=== PATIENT | female | born 1950 | race Caucasian/White ===

== ENCOUNTER 2016-08-31 00:20 | Inpatient (IN) | payer MEDICARE ==
[~2016-08-31 00:20] MED LIST: CALCIUM-MAGNES1 EACH PO; CIPRO XR500 MG PO; CLONIDINE HCL0.1 MG PO; COUMADIN4 M1 PO; DIGOXIN125 MCG PO; FISH OIL 1,0001 CA1 PO; FLAGYL500 MG PO; FUROSEMIDE40 MG PO; HYDRALAZINE HCL25 M1 PO; KLOR-CON M1010 MEQ PO; LISINOPRIL-HCT1 EAC1 PO; LOPRESSOR100 M1 PO; NORVASC10 MG PO; VIT D; VIT E; WARFARIN
[2016-08-31] MEDS ORDERED: COUMADIN5 M2 PO (00:50)
[2016-08-31 01:35] LABS: BASO % 0.1 % (0-2); EOS % 0.5 % (0-7); HCT-HEMATOCRIT 32.2 % (34.0-49.0); HGB-HEMOGLOBIN 11.6 gm/dl (12.0-15.5); IMMATURE GRANULOCYTES ABSOLUTE 0.03 tho/cmm (0-0.03); IMMATURE GRANULOCYTES PERCENT 0.4 % (0-0.3); LYMPH % 14.7 % (20-45); LYMPH ABSOLUTE COUNT 1.2 tho/cmm (0.8-4.5); MCH (MEAN CORPUSCULAR HGB) 29.7 pg (28.0-32.0); MCV (MEAN CELL VOLUME) 82.4 fl (82.0-96.0); MEAN PLATELET VOLUME 8.3 cmc (9.4-12.4); MONO % 8.6 % (0-12); MONOCYTE ABSOLUTE COUNT 0.7 tho/cmm (0.0-1.2); NEUTROPHIL ABSOLUTE COUNT 6.3 tho/cmm (1.6-8.0); NEUTROPHIL-AUTOMATED 6.3 tho/cmm (1.6-8.0); NEUTROPHILS % 75.7 % (40-80); PLATELET COUNT 281 tho/cmm (150-450); RED BLOOD COUNT 3.91 mil/cmm (4.00-5.20); RED CELL DISTRIBUTION WIDTH 12.5 % (12.4-16.4); WHITE BLOOD COUNT 8.3 tho/cmm (4.0-10.0)
[2016-08-31 01:53] LABS: URINE BILIRUBIN NEGATIVE (NEG); URINE BLOOD MODERATE (NEG); URINE GLUCOSE (UA) NEGATIVE (NEG); URINE KETONE SMALL (NEG); URINE LEUKOCYTE ESTERASE NEGATIVE (NEG); URINE NITRITE POSITIVE (NEG); URINE PROTEIN MODERATE (NEG); URINE SPECIFIC GRAVITY 1.005 (1.003-1.030)
[2016-08-31 01:53] LABS: ALB/GLOB RATIO 1.1 (0.8-2.0); ALBUMIN 4.1 g/dl (3.5-5.0); ALKALINE PHOSPHATASE 126 U/L (33-138); ALT/SGPT 36 U/L (12-78); ANION GAP 18 mmol/L (0-20); AST/SGOT 34 U/L (10-40); BILIRUBIN,TOTAL 0.8 mg/dl (0-1.5); BLOOD UREA NITROGEN 31 mg/dl (6-24); CALCIUM 9.1 mg/dl (8.5-10.5); CARBON DIOXIDE-VENOUS 22 mmol/L (22-32); CHLORIDE 78 mmol/l (96-110); CREATININE 1.13 mg/dl (0.50-1.10); GLUCOSE 139 mg/dL (70-110); LIPASE 327 U/L (73-393); POTASSIUM 3.5 mmol/L (3.7-5.1); eGFR VALUE FOR BLACK 58 mL/Min
[2016-08-31 02:03] LABS: URINE APPEARANCE HAZY; URINE COLOR PALE YELLOW
[2016-08-31 02:04] LABS: URINE BACTERIA 3+; URINE EPITHELIAL CELLS 0 /[HPF] (0-10)
[2016-08-31 02:09] LABS: SODIUM 114 mmol/L (135-145)
[2016-08-31 04:51] LABS: INR 1.7 INR (0.9-1.1); PROTHROMBIN TIME 19.6 SECONDS (9.0-13.6)
[2016-08-31 05:21] LABS: URINE PRT/CR RATIO 3.43 Ratio (0.0-0.20); URINE TOTAL PROTEIN-RANDOM 27.5 mg/dl (<11.8)
[2016-08-31 05:49] LABS: INR 1.7 INR (0.9-1.1); PROTHROMBIN TIME 20.6 SECONDS (9.0-13.6)
[2016-08-31 05:54] LABS: ANION GAP 19 mmol/L (0-20); BLOOD UREA NITROGEN 26 mg/dl (6-24); CARBON DIOXIDE-VENOUS 23 mmol/L (22-32); CHLORIDE 78 mmol/l (96-110); CREATININE 1.07 mg/dl (0.50-1.10); GLUCOSE 128 mg/dL (70-110); POTASSIUM 3.5 mmol/L (3.7-5.1); eGFR VALUE FOR BLACK 62 mL/Min
[2016-08-31 06:05] LABS: SODIUM 116 mmol/L (135-145)
[2016-09-01 02:39] LABS: URINE PRT/CR RATIO 0.47 Ratio (0.0-0.20); URINE TOTAL PROTEIN-RANDOM 11.4 mg/dl (<11.8)
[2016-09-01 04:58] LABS: INR 1.9 INR (0.9-1.1)
[2016-09-01 05:04] LABS: ANION GAP 15 mmol/L (0-20); BLOOD UREA NITROGEN 29 mg/dl (6-24); CALCIUM 8.5 mg/dl (8.5-10.5); CARBON DIOXIDE-VENOUS 23 mmol/L (22-32); CHLORIDE 90 mmol/l (96-110); CREATININE 1.28 mg/dl (0.50-1.10); GLUCOSE 119 mg/dL (70-110); MAGNESIUM 1.8 mg/dl (1.8-2.6); PHOSPHOROUS 2.6 mg/dl (2.5-4.9); POTASSIUM 3.8 mmol/L (3.7-5.1); SODIUM 124 mmol/L (135-145); eGFR VALUE FOR BLACK 50 mL/Min
[2016-09-02 05:34] LABS: PROTHROMBIN TIME 23.5 SECONDS (9.0-13.6)
[2016-09-02 05:39] LABS: ANION GAP 14 mmol/L (0-20); BLOOD UREA NITROGEN 31 mg/dl (6-24); CALCIUM 8.7 mg/dl (8.5-10.5); CARBON DIOXIDE-VENOUS 23 mmol/L (22-32); CHLORIDE 101 mmol/l (96-110); CREATININE 1.21 mg/dl (0.50-1.10); GLUCOSE 103 mg/dL (70-110); SODIUM 133 mmol/L (135-145); eGFR VALUE FOR BLACK 54 mL/Min
[2016-09-02 05:44] LABS: POTASSIUM 4.7 mmol/L (3.7-5.1)
[2016-09-02] MEDS ORDERED: ZESTRIL20 M3 PO (10:25)
== END 2016-09-02 11:30 | DRG 641 ==
LOC: EDMED 00:20 → EMR2 03:45 → 5WF 03:46
PROVIDERS: Emergency Medicine; Family Medicine; Internal Medicine Nephrology; Registered Nurse; ADMIT Internal Medicine
DX: E87.1 Hypo-osmolality and hyponatremia (principal); E86.0 Dehydration; E11.22 Type 2 diabetes mellitus with diabetic chronic kidney disease; I48.91 Unspecified atrial fibrillation; N18.3 Chronic kidney disease, stage 3 (moderate); I13.0 Hypertensive heart and chronic kidney disease with heart failure and stage 1 through stage 4 chronic kidney disease, or unspecified chronic kidney disease; I50.32 Chronic diastolic (congestive) heart failure; E86.1 Hypovolemia; E87.6 Hypokalemia; T39.395A Adverse effect of other nonsteroidal anti-inflammatory drugs [NSAID], initial encounter; T50.2X5A Adverse effect of carbonic-anhydrase inhibitors, benzothiadiazides and other diuretics, initial encounter; Z79.01 Long term (current) use of anticoagulants; R00.1 Bradycardia, unspecified; W19.XXXA Unspecified fall, initial encounter; M16.0 Bilateral primary osteoarthritis of hip; R82.71 Bacteriuria; R80.9 Proteinuria, unspecified; D64.9 Anemia, unspecified
CPT/HCPCS: J2405; J7030